=== PATIENT | male | born 1970 | race Caucasian/White ===

== ENCOUNTER 2016-12-27 05:36 | Emergency (ER) | payer OTHER ==
[~2016-12-27] VITALS: Ht 177.8 cm; Wt 118.0 kg
[~2016-12-27 05:36] MED LIST: ABILIFY30 MG PO; ABILIFY5 MG PO; AMBIEN10 MG PO; AMBIEN5 M1; ATARAX,VISTARIL25 MG; ATIVAN0.5 MG PO; ATIVAN1 MG PO; CLINDAMYCIN HC300 MG PO; Cymbalta PO; DEPAKOTE ER250 MG PO; DEPAKOTE500 MG PO; DILAUDID2 MG PO; GEODON20 MG; GEODON40 MG PO; HABITROL,NICODE21 MG; HABITROL,NICODE21 MG TD; LIPITOR10 MG PO; LYRICA50 MG PO; MELOXICAM15 MG PO; NOHOMEMEDS; Norvasc PO; OXYCODONE-ACET1 EACH PO; PERCOCET 5/31 TABLET PO; PRAZOSIN HCL2 MG PO; PRAZOSIN PO; PROTONIX40 MG PO; TYLENOL EXTRA500 MG; ULTRAM50 MG PO; VITAMIN D2000 INTUN PO; ZOLOFT50 MG PO
[2016-12-27 06:26] LABS: HEMATOCRIT 41.5 % (38.0-50.0); MCH 27.2 PG (29.0-34.0); MCHC 34.5 G/DL (30.0-36.0); MEAN PLAT.VOLUME 8.7 uM^3 (9.0-12.4); PLATELET COUNT 271 K/uL (156-360); RBC DIS.WIDTH-CV 12.7 % (11.8-14.6); RBC DIS.WIDTH-SD 36.2 % (39-53); RED BLOOD COUNT 5.25 M/uL (4.00-5.50); WHITE BLOOD COUNT 6.9 K/uL (4.1-10.2)
[2016-12-27 06:36] LABS: CHLORIDE 105 mEq/L (99-109); POTASSIUM 3.9 mEq/L (3.7-5.4); SODIUM 133 mEq/L (136-147)
[2016-12-27 06:37] LABS: GLUCOSE 132 mg/dL (70-99)
[2016-12-27 06:38] LABS: ANION GAP 7 MEQ/L (2-14)
[2016-12-27 06:41] LABS: GFR ESTIMATE (CALCULATED) > 59 mL/min/
[2016-12-27 06:42] LABS: UREA NITROGEN (BUN) 10 mg/dL (9-23)
[2016-12-27 06:46] LABS: TROP-I INTERPRETATION NEGATIVE; TROPONIN-I < 0.01 ng/mL (0.0-0.30)
[2016-12-27 06:47] LABS: D-DIMER ELISA 0.43 mg/L FEU (< 0.57)
[2016-12-27 09:08] LABS: TROP-I INTERPRETATION NEGATIVE; TROPONIN-I < 0.01 ng/mL (0.0-0.30)
[2016-12-27] MEDS ORDERED: MOTRIN800 MG PO (09:34)
[2016-12-27 10:02] VITALS: BP 128/82
== END 2016-12-27 10:08 | disposition home or self-care (01) ==
LOC: EME 05:36
PROVIDERS: Emergency Medicine
DX: R07.89 Other chest pain (principal); F17.200 Nicotine dependence, unspecified, uncomplicated; Z88.0 Allergy status to penicillin
CPT/HCPCS: 71020; 80048; 84484; 85027; 85379; 93005; 99281; 99285; J1885

== ENCOUNTER 2017-03-17 05:21 | Emergency (ER) | payer OTHER ==
[~2017-03-17] VITALS: Ht 177.8 cm; Wt 121.0 kg
[~2017-03-17 05:21] MED LIST changes: +MOTRIN800 MG PO
[2017-03-17] MEDS ORDERED: ULTRAM50 MG PO (06:38)
[2017-03-17 06:57] VITALS: BP 124/86
== END 2017-03-17 06:58 | disposition home or self-care (01) ==
LOC: EME 05:21
DX: S91.201A Unspecified open wound of right great toe with damage to nail, initial encounter (principal); F17.200 Nicotine dependence, unspecified, uncomplicated; E66.9 Obesity, unspecified; Z88.0 Allergy status to penicillin
CPT/HCPCS: 73660; 99281; 99283

== ENCOUNTER 2017-11-09 02:41 | Emergency (ER) | payer OTHER ==
[~2017-11-09] VITALS: Ht 177.8 cm; Wt 117.6 kg
[2017-11-09] MEDS ORDERED: NEURONTIN300 MG PO (03:59)
[2017-11-09 04:26] VITALS: BP 136/83
== END 2017-11-09 04:26 | disposition home or self-care (01) ==
LOC: EME 02:41
DX: M79.671 Pain in right foot (principal); G89.29 Other chronic pain; Q05.9 Spina bifida, unspecified; Z91.81 History of falling; F17.200 Nicotine dependence, unspecified, uncomplicated
CPT/HCPCS: 73630; 99281; 99283

== ENCOUNTER 2017-12-12 21:30 | Emergency (ER) | payer OTHER ==
[~2017-12-12] VITALS: Ht 177.8 cm; Wt 121.1 kg
[~2017-12-12 21:30] MED LIST changes: +NEURONTIN300 MG PO
[2017-12-12 22:52] LABS: BASOPHIL (%) 0.6 % (0-1); BASOPHIL COUNT 0.1 K/uL (0-0.1); EOSINOPHIL (%) 1.1 % (0-5); EOSINOPHIL COUNT 0.1 K/uL (0-0.3); HEMATOCRIT 48.5 % (38.0-50.0); HEMOGLOBIN 16.8 G/DL (12.5-16.6); IMMATURE GRANULOCYTE (%) 0.4 % (0.0-0.7); LYMPHOCYTE (%) 40.6 % (15-42); MCH 27.3 PG (29.0-34.0); MCHC 34.6 G/DL (30.0-36.0); MCV 78.7 FL (86-99); MONOCYTE (%) 8.3 % (3-12); MONOCYTE COUNT 0.8 K/uL (0-0.8); NEUTROPHIL COUNT 4.8 K/uL (1.8-6.4); PLATELET COUNT 367 K/uL (156-360); RBC DIS.WIDTH-CV 13.2 % (11.8-14.6); RBC DIS.WIDTH-SD 37.2 % (39-53); RED BLOOD COUNT 6.16 M/uL (4.00-5.50); WHITE BLOOD COUNT 9.8 K/uL (4.1-10.2)
[2017-12-12 23:02] LABS: CHLORIDE 105 mEq/L (99-109); POTASSIUM 5.3 mEq/L (3.7-5.4); SODIUM 139 mEq/L (136-147)
[2017-12-12 23:04] LABS: GLUCOSE 101 mg/dL (70-99)
[2017-12-12 23:08] LABS: CREATININE 1.1 mg/dL (0.6-1.3); GFR ESTIMATE (CALCULATED) > 59 mL/min/ (58.99-99999)
[2017-12-12 23:09] LABS: UREA NITROGEN (BUN) 16 mg/dL (9-23)
[2017-12-13] MEDS ORDERED: LEVAQUIN750 MG PO (00:31)
[2017-12-13 01:33] VITALS: BP 130/92
== END 2017-12-13 01:59 | disposition home or self-care (01) ==
LOC: EME 21:30
PROVIDERS: Emergency Medicine
DX: J18.9 Pneumonia, unspecified organism (principal); R09.89 Other specified symptoms and signs involving the circulatory and respiratory systems; K21.9 Gastro-esophageal reflux disease without esophagitis; G43.909 Migraine, unspecified, not intractable, without status migrainosus; F32.9 Major depressive disorder, single episode, unspecified; F31.9 Bipolar disorder, unspecified; F43.10 Post-traumatic stress disorder, unspecified; F17.200 Nicotine dependence, unspecified, uncomplicated; Z88.8 Allergy status to other drugs, medicaments and biological substances; Z88.0 Allergy status to penicillin
CPT/HCPCS: 71046; 80048; 85025; 99281; 99284